=== PATIENT | female | born 1945 | race Caucasian/White ===

== ENCOUNTER 2021-02-02 06:42 | Emergency (ER) | payer MEDICARE, OTHER ==
[~2021-02-02] VITALS: Ht 172.7 cm; Wt 69.5 kg
[2021-02-02 07:39] LABS: ALBUMIN 3.2 G/DL (3.4-5.0); ANION GAP 7 (8-16); BLOOD UREA NITROGEN 19 MG/DL (7-18); BUN/CREATININE RATIO 21.6 (6.6-38.0); CALCIUM 8.9 MG/DL (8.5-10.1); CHLORIDE 111 MMOL/L (99-107); CREATININE 0.88 MG/DL (0.40-0.90); GLUCOSE 93 MG/DL (70-104); POTASSIUM 3.7 MMOL/L (3.5-5.1); SODIUM 144 MMOL/L (135-145); TOTAL CARBON DIOXIDE 26.2 MMOL/L (24-32); eGFR 63 ML/MIN
--- NOTE | 2021-02-02 08:00 | NUR ---
CALLED [facility] TO COME GET PT. WILL BE ABOUT 30-45 MINUTES.
[2021-02-02 08:40] VITALS: BP 103/43
== END 2021-02-02 08:42 | disposition home or self-care (01) ==
LOC: ER 06:42
DX: R00.0 Tachycardia, unspecified (principal); F31.9 Bipolar disorder, unspecified; I38 Endocarditis, valve unspecified; Z00.01 Encounter for general adult medical examination with abnormal findings
CPT/HCPCS: 36415; 80048; 83735; 93005; 99284